=== PATIENT | male | born 1950 | race Caucasian/White ===

== ENCOUNTER 2019-12-16 13:20 | Outpatient (CLI) | payer MEDICARE, OTHER | END 2019-12-16 13:21 | disposition home or self-care (01) | LOC: DI 13:20 | PROVIDERS: ATTEND Internal Medicine Cardiovascular Disease | DX: I25.10 Atherosclerotic heart disease of native coronary artery without angina pectoris (principal); I71.4 Abdominal aortic aneurysm, without rupture; Z95.0 Presence of cardiac pacemaker | CPT/HCPCS: 93306 ==

== ENCOUNTER 2021-04-23 11:26 | Outpatient (CLI) | payer MEDICARE, OTHER ==
--- NOTE | 2021-04-23 13:32 | Ultrasound Report ---
PROCEDURE: Retroperitoneal Limited INDICATIONS: AAA WITHOUT RUPTURE TECHNIQUE: Real time scanning was performed of the aorta and iliac arteries, with image documentatio n. COMPARISON: None. FINDINGS: Aorta: Proximal aortic diameter measures 4.3 x 3.7 cm. Mid-aorta measures 3.6 x 3.4 cm. Distal aor tic diameter is 3.9 x 3.4 cm. Iliac arteries: Right common iliac artery measures 1.4 x 1.5 cm. Left common iliac artery measures 1.9 x 1.8 cm. Aortobiiliac stent is seen extending from the level of mid abdominal aorta to bilateral proximal comm on iliac arteries. Thrombosis/plaque formation along the aortic stent is seen. IMPRESSION: Fusiform abdominal aortic aneurysm as above with aortobiiliac stent placement. No signs of rupture. Reviewed by: Rafiq Walker MD on 04/23/2021 1:31 PM PDT Approved by: Rafiq Walker MD on 04/23/2021 1:31 PM PDT Station ID: [id number]
== END 2021-04-23 11:27 | disposition home or self-care (01) ==
LOC: DI 11:26
PROVIDERS: ATTEND Internal Medicine Cardiovascular Disease
DX: I71.4 Abdominal aortic aneurysm, without rupture (principal); Z96.89 Presence of other specified functional implants

== ENCOUNTER 2022-01-25 14:46 | Outpatient (CLI) | payer MEDICARE, OTHER | END 2022-01-25 14:47 | disposition home or self-care (01) | LOC: DI 14:46 | PROVIDERS: ATTEND Internal Medicine | DX: I25.5 Ischemic cardiomyopathy (principal); I51.7 Cardiomegaly; Z95.0 Presence of cardiac pacemaker; I77.810 Thoracic aortic ectasia | CPT/HCPCS: 93306 ==

== ENCOUNTER 2023-01-26 16:17 | Outpatient (CLI) | payer MEDICARE, OTHER ==
--- NOTE | 2023-01-26 20:44 | XRAY Report ---
PROCEDURE: Hips 2V BILAT INDICATIONS: HIP PAIN TECHNIQUE: AP view the pelvis and frog-leg lateral views of the right and left hips. COMPARISON: None. FINDINGS: Bones: No acute fractures or dislocations. No suspicious bony lesions. Severe joint space narrowi ng is seen in the right hip with subchondral sclerosis, marginal osteophyte formation, and mild remod eling of the articular surfaces. There is mild left hip osteoporosis. Degenerative changes are seen i n the included spine. Soft tissues: No suspicious soft tissue calcifications. An aortoiliac stent graft is noted. IMPRESSION: Severe asymmetric right hip osteoarthrosis and mild left hip osteoarthrosis. Reviewed by: Sheng Urbina MD on 01/26/2023 8:42 PM PDT Approved by: Sheng Urbina MD on 01/26/2023 8:42 PM PDT Station ID: [id number]
== END 2023-01-26 16:18 | disposition home or self-care (01) ==
LOC: DI.S 16:17
PROVIDERS: ATTEND Physician Assistant
DX: M16.0 Bilateral primary osteoarthritis of hip (principal)

== ENCOUNTER 2023-09-13 08:00 | Outpatient (CLI) | payer MEDICARE, OTHER | END 2023-09-13 08:01 | disposition home or self-care (01) | LOC: LAB.S 08:00 | PROVIDERS: ATTEND Registered Nurse | DX: R05.1 Acute cough (principal); R06.09 Other forms of dyspnea ==

== ENCOUNTER 2023-09-13 08:00 | Outpatient (CLI) | payer MEDICARE, OTHER ==
--- NOTE | 2023-09-13 14:21 | XRAY Report ---
PROCEDURE: Chest 2V INDICATIONS: COUGH/DYSPNEA TECHNIQUE: 2 views of the chest were acquired. COMPARISON: None. FINDINGS: Surgical changes and devices: Pacemaker. Lungs and pleura: Mild blunting of the left costophrenic angle. Mediastinum: Mediastinal contours appear normal. Heart size is normal. Bones and chest wall: No suspicious bony lesions. Overlying soft tissues appear unremarkable. IMPRESSION: Mild left costophrenic blunting suggestive of effusion versus scarring. Reviewed by: Coleen Rocha MD on 09/13/2023 2:19 PM PDT Approved by: Coleen Rocha MD on 09/13/2023 2:19 PM PDT Station ID: [id number]
== END 2023-09-13 23:59 | disposition home or self-care (01) ==
LOC: DI.S 08:00
PROVIDERS: ATTEND Registered Nurse
DX: R05.1 Acute cough (principal); R06.09 Other forms of dyspnea

== ENCOUNTER 2023-09-22 07:00 | Outpatient (CLI) | payer MEDICARE, OTHER ==
--- NOTE | 2023-09-24 07:43 | XRAY Report ---
PROCEDURE: Chest 2V INDICATIONS: PLEURAL EFFUSION TECHNIQUE: 2 views of the chest were acquired. COMPARISON: 2 views of the chest dated 09/13/2023 FINDINGS: Surgical changes and devices: None. Lungs and pleura: There is persistent blunting at the left costophrenic sulcus. The lungs are otherw ise clear. As the paucity of vessels in the upper lungs and the diaphragms are flattened suggesting p ulmonary emphysema. Mediastinum: Mediastinal contours appear normal. Heart size is normal. Bones and chest wall: No suspicious bony lesions. Overlying soft tissues appear unremarkable. IMPRESSION: 1. Blunting of the left costophrenic sulcus. Differential considerations include pleural scarring and pleural effusion. 2. Emphysematous change. Reviewed by: Inez Gomez MD on 09/24/2023 7:42 AM PDT Approved by: Inez Gomez MD on 09/24/2023 7:42 AM PDT Station ID: [id number]
== END 2023-09-22 23:59 | disposition home or self-care (01) ==
LOC: DI.S 07:00
PROVIDERS: ATTEND Emergency Medicine
DX: J90 Pleural effusion, not elsewhere classified (principal); R91.8 Other nonspecific abnormal finding of lung field

== ENCOUNTER 2023-09-24 08:25 | Outpatient (CLI) | payer MEDICARE, OTHER ==
[2023-09-24 14:30] LABS: BASOPHILS # (AUTO) 0.1 10^3/uL (0.0-0.1); BASOPHILS % (AUTO) 0.7 %; EOSINOPHILS % (AUTO) 0.2 %; HCT - HEMATOCRIT 47.8 % (42.0-52.0); LYMPHOCYTES # (AUTO) 2.6 10^3/uL (1.5-3.5); LYMPHOCYTES % (AUTO) 18.8 %; MEAN CORPUSCULAR HGB CONC 31.4 g/dL (32.0-36.0); MEAN CORPUSCULAR VOLUME 101.9 fL (80.0-94.0); MEAN PLATELET VOLUME 11.5 fL (7.4-11.4); MONOCYTES # (AUTO) 0.9 10^3/uL (0.0-1.0); MONOCYTES % (AUTO) 6.9 %; NEUTROPHILS # (AUTO) 9.9 10^3/uL (1.5-6.6); NEUTROPHILS % (AUTO) 73.1 %; PLT - PLATELET COUNT 269 10^3/uL (130-450); RED BLOOD COUNT 4.69 10^6/uL (4.70-6.10); RED CELL DISTRIBUTION WIDTH 13.2 % (12.0-15.0); WHITE BLOOD COUNT 13.6 x10^3/uL (4.8-10.8)
[2023-09-24 15:33] LABS: ALBUMIN 4.1 g/dL (3.2-5.5); ALBUMIN/GLOBULIN RATIO 1.2 (1.0-2.2); BILIRUBIN,TOTAL 0.6 mg/dL (0.2-1.0); CALCIUM 10.4 mg/dL (8.5-10.3); CREATININE 1.2 mg/dL (0.6-1.3); POTASSIUM 5.1 mmol/L (3.5-4.5); TOTAL PROTEIN 7.5 g/dL (6.4-8.9)
== END 2023-09-24 08:26 | disposition home or self-care (01) ==
LOC: LAB.S 08:25
PROVIDERS: ATTEND Emergency Medicine
DX: J90 Pleural effusion, not elsewhere classified (principal)
CPT/HCPCS: 36415; 80053; 83880; 85025

== ENCOUNTER 2023-09-27 09:03 | Outpatient (CLI) | payer MEDICARE, OTHER | END 2023-09-27 09:04 | disposition home or self-care (01) | LOC: LAB.S 09:03 | PROVIDERS: ATTEND Emergency Medicine | DX: J90 Pleural effusion, not elsewhere classified (principal) | CPT/HCPCS: 36415; 83880 ==

== ENCOUNTER 2024-01-23 11:55 | Outpatient (CLI) | payer MEDICARE, OTHER ==
[2024-01-23 12:31] LABS: CHOL/HDL RATIO 3.4 (<5.0); CHOLESTEROL 212 mg/dL; HDL CHOLESTEROL 62 mg/dL; LDL CHOLESTEROL,CALCULATED 135 mg/dL; LDL/HDL RATIO 2.2 (<3.6); TRIGLYCERIDES 74 mg/dL; VLDL CHOLESTEROL 15 mg/dL
[2024-01-23 12:48] LABS: THYROID STIMULATING HORMONE 0.92 uIU/mL (0.34-5.60)
[2024-01-23 12:49] LABS: ESTIMATED AVERAGE GLUCOSE 105 mg/dL (70-100); HEMOGLOBIN A1c% 5.3 % (4.27-6.07)
== END 2024-01-23 11:56 | disposition home or self-care (01) ==
LOC: LAB 11:55
PROVIDERS: ATTEND Nurse Practitioner Acute Care
DX: Z13.220 Encounter for screening for lipoid disorders (principal); Z12.5 Encounter for screening for malignant neoplasm of prostate; Z13.1 Encounter for screening for diabetes mellitus; Z13.29 Encounter for screening for other suspected endocrine disorder; I10 Essential (primary) hypertension
CPT/HCPCS: 36415; 80061; 83036; 84443; G0103; 83721; 84153